=== PATIENT | male | born 1950 | race African-American/Black ===

== ENCOUNTER 2018-04-05 16:55 | Emergency (ER) | payer MEDICARE, MEDICAID ==
[~2018-04-05] VITALS: Ht 188 cm; Wt 65.9 kg
[2018-04-05 20:20] VITALS: BP 152/83
[2018-04-05] MEDS ORDERED: IBUPROFEN 600 MG TABLET PO ONE (20:30)
== END 2018-04-05 20:45 | disposition home or self-care (01) ==
LOC: EMS 16:56
DX: S09.8XXA Other specified injuries of head, initial encounter (principal); F20.9 Schizophrenia, unspecified; V89.2XXA Person injured in unspecified motor-vehicle accident, traffic, initial encounter; Y93.89 Activity, other specified; Y92.89 Other specified places as the place of occurrence of the external cause; Y99.8 Other external cause status
CPT/HCPCS: 70450; 99284